=== PATIENT | male | born 1955 | race Caucasian/White ===

== ENCOUNTER 2021-11-05 09:16 | Emergency (ER) | payer MEDICARE, BC ==
[2021-11-05 09:54] VITALS: BP 125/85; PULSE 102
--- NOTE | 2021-11-05 10:40 | EDM.PDOC ---
ED HPI GENERAL MEDICAL PROBLEM - General Chief Complaint: General Stated Complaint: INFECTION IN BUTT Time Seen by Provider: 11/05/21 10:17 Source of Information: Reports: Patient, RN Notes Reviewed History Limitations: Reports: No Limitations - History of Present Illness INITIAL COMMENTS - FREE TEXT/NARRATIVE: 66-year-old gentleman presents the emergency department today with a painful red area near his rectum states is developed over the last 5days he is not had any fevers at home he is never had anything like this before. Buttock Pain Score (Numeric/FACES): 10 - Related Data Allergies Allergy/AdvReac Type Severity Reaction Status Date / Time No Known Allergies Allergy Verified 11/05/21 09:54 Home Meds: Home Meds NK [No Known Home Meds] 08/20/13 [History] Past Medical History - Past Health History Medical/Surgical History: Denies Medical/Surgical History Social & Family History - Tobacco Use Tobacco Use Status *Q: Heavy Tobacco User Years of Tobacco use: 50 Packs/Tins Daily: 2 - Recreational Drug Use Recreational Drug Use: No ED ROS GENERAL - Review of Systems Review Of Systems: See Below Constitutional: Reports: No Symptoms Respiratory: Reports: No Symptoms Cardiovascular: Reports: No Symptoms GI/Abdominal: Reports: No Symptoms Skin: Reports: Wound ED EXAM, GENERAL - Physical Exam Exam: See Below Free Text/Narrative:: Examination of the rectum sphincter appears normal with good tone however there is an area firm indurated warm tender to the touch superior aspects about in the 2 o'clock position, there is some erythema within the gluteal cleft as well as on the buttocks area one third of the way on the left gluteal cheek Exam Limited By: No Limitations General Appearance: Alert, WD/WN, No Apparent Distress Course - Vital Signs Last Recorded V/S: Last Vital Signs Temp 97.6 F 11/05/21 09:52 Pulse 102 H 11/05/21 09:52 Resp 20 11/05/21 09:52 BP 125/85 11/05/21 09:52 Pulse Ox 94 L 11/05/21 09:52 Departure - Departure Time of Disposition: 10:39 Disposition: Home, Self-Care 01 Condition: Fair Clinical Impression: Pilonidal cyst - Discharge Information Instructions: Pilonidal Cyst, Pilonidal Cyst Drainage, Pilonidal Cyst Drainage, Care After Referrals: PCP,None [Primary Care Provider] - Additional Instructions: Use ibuprofen for baseline pain control use hydrocodone for breakthrough pain, take full course of antibiotics, please report to the emergency department entrance tomorrow at 1:00 for your Covid testing the outpatient surgery center will call you for a surgery time on Wednesday to have this excised, Sepsis Event Note (ED) - Evaluation Sepsis Screening Result: No Definite Risk - Focused Exam Vital Signs: Vital Signs Temp Pulse Resp BP Pulse Ox 11/05/21 09:52 97.6 F 102 H 20 125/85 94 L - Assessment/Plan Plan: Assessment Acuity = acute Site and laterality = pilonidal cyst Etiology = unknown Manifestations = painful rectal area Location of injury = Home Lab values = none Plan Called discussed case Dr. Steward surgeon on-call at 1030 he kindly agreed to see the patient in an hospital with plan for surgical excision after treatment with antibiotics. He is placed on Augmentin 875 p.o. twice daily [id number], hyd rocodone 5/325 1 tab p.o. 3 times daily as needed total #10 provided for pain control Covid testing will be done prior to surgery This note was dictated using [employer] voice recognition software please call with any questions on syntax or grammar.
== END 2021-11-05 11:10 | disposition home or self-care (01) ==
LOC: JP.ED 09:16
DX: L05.91 Pilonidal cyst without abscess (principal); Z72.0 Tobacco use
CPT/HCPCS: 99282

== ENCOUNTER 2021-11-07 10:01 | Inpatient (IN) | payer MEDICARE, BC ==
[2021-11-07] MEDS ORDERED: fentaNYL 100 MCG/2 ML SDV IVPUSH ONE (11:15)
--- NOTE | 2021-11-07 11:18 | EDM.PDOC ---
ED HPI GENERAL MEDICAL PROBLEM - General Chief Complaint: Wound Recheck Stated Complaint: INFECTION Time Seen by Provider: 11/07/21 11:06 Source of Information: Reports: Patient, Old Records, RN Notes Reviewed History Limitations: Reports: No Limitations - History of Present Illness INITIAL COMMENTS - FREE TEXT/NARRATIVE: 66-year-old gentleman presents emergency department today with complaint of abscess on his rectum area the opportunity to evaluate him on Wednesday felt this was consistent with pilonidal cyst/perirectal abscess. He is on antibiotics of Augmentin has been using pain control with hydrocodone. He states he has not been able to do the sitz bath because he does not have a bath at home. States the hydrocodone is not helping with the pain. The abscess is open and draining no fevers Buttock Pain Score (Numeric/FACES): 10 - Related Data Allergies Allergy/AdvReac Type Severity Reaction Status Date / Time No Known Allergies Allergy Verified 11/07/21 10:57 Home Meds: Home Meds Acetaminophen/HYDROcodone [HYDROcodone-Acetaminophen 5-325 MG *] 1 tab PO ASDIRECTED 11/07/21 [History] Amoxicillin/Clavulanate K [Augmentin 875-125 MG] 1 tab PO DAILY 11/07/21 [History] Past Medical History - Past Health History Medical/Surgical History: Denies Medical/Surgical History Genitourinary History: Reports: Chronic Renal Insuffiency Other Genitourinary History: stage 4 kidney disease Musculoskeletal History: Reports: Fracture - Past Surgical History GI Surgical History: Reports: Hernia, Inguinal Social & Family History - Tobacco Use Tobacco Use Status *Q: Heavy Tobacco User Years of Tobacco use: 55 Packs/Tins Daily: 1.5 - Caffeine Use Caffeine Use: Reports: Coffee - Alcohol Use Days Per Week of Alcohol Use: 3 Number of Drinks Per Day: 8 Total Drinks Per Week: 24 - Recreational Drug Use Recreational Drug Use: No ED ROS GENERAL - Review of Systems Review Of Systems: See Below Constitutional: Denies: Fever Respiratory: Reports: No Symptoms Cardiovascular: Reports: No Symptoms GI/Abdominal: Reports: No Symptoms Skin: Reports: Wound, Lesions ED EXAM, GENERAL - Physical Exam Exam: See Below Free Text/Narrative:: Examination of the buttock area there is a area that is open and draining about the size of a $0.50 piece it is tender firm red predominantly all on the right gluteal cheek near the rectum Exam Limited By: No Limitations General Appearance: Alert, WD/WN, No Apparent Distress Respiratory/Chest: No Respiratory Distress Course - Vital Signs Last Recorded V/S: Last Vital Signs Temp 97.7 F 11/07/21 10:55 Pulse 73 11/07/21 10:55 Resp 16 11/07/21 10:55 BP 112/55 L 11/07/21 10:55 Pulse Ox 100 11/07/21 10:55 - Orders/Labs/Meds Labs: Laboratory Tests 11/07/21 11/07/21 11/07/21 Range/Units 11:15 11:23 11:23 WBC 20.9 H (4.5-11.0) K/uL RBC 5.01 (4.30-5.90) M/uL Hgb 14.4 (12.0-15.0) g/dL Hct 43.7 (40.0-54.0) % MCV 87 (80-98) fL MCH 29 (27-31) pg MCHC 33 (32-36) % Plt Count 311 (150-400) K/uL Neut % (Auto) 83.7 H (36-66) % Lymph % (Auto) 6.1 L (24-44) % [place] % (Auto) 8.9 H (2-6) % Eos % (Auto) 1.0 L (2-4) % Baso % (Auto) 0.3 (0-1) % Sodium 141 (140-148) mmol/L Potassium 4.2 (3.6-5.2) mmol/L Chloride 107 (100-108) mmol/L Carbon Dioxide 21 (21-32) mmol/L Anion Gap 13.3 (5.0-14.0) mmol/L BUN 33 H (7-18) mg/dL Creatinine 2.2 H (0.8-1.3) mg/dL Est Cr Clr Drug Dosing 32.58 mL/min Estimated GFR (MDRD) 30 L (>60) Glucose 117 H (74-106) mg/dL Lactic Acid (0.4-2.0) mmol/L Calcium 9.4 (8.5-10.1) mg/dL Total Bilirubin 0.3 (0.2-1.0) mg/dL AST 29 (15-37) U/L ALT 35 (12-78) U/L Alkaline Phosphatase 105 (46-116) U/L Total Protein 7.1 (6.4-8.2) g/dL Albumin 2.5 L (3.4-5.0) g/dL Globulin 4.6 H (2.3-3.5) g/dL Albumin/Globulin Ratio 0.5 L (1.2-2.2) SARS CoV-2 RNA Rapid DANNY Negative 11/07/21 Range/Units 11:23 WBC (4.5-11.0) K/uL RBC (4.30-5.90) M/uL Hgb (12.0-15.0) g/dL Hct (40.0-54.0) % MCV (80-98) fL MCH (27-31) pg MCHC (32-36) % Plt Count (150-400) K/uL Neut % (Auto) (36-66) % Lymph % (Auto) (24-44) % [place] % (Auto) (2-6) % Eos % (Auto) (2-4) % Baso % (Auto) (0-1) % Sodium (140-148) mmol/L Potassium (3.6-5.2) mmol/L Chloride (100-108) mmol/L Carbon Dioxide (21-32) mmol/L Anion Gap (5.0-14.0) mmol/L BUN (7-18) mg/dL Creatinine (0.8-1.3) mg/dL Est Cr Clr Drug Dosing mL/min Estimated GFR (MDRD) (>60) Glucose (74-106) mg/dL Lactic Acid 1.2 (0.4-2.0) mmol/L Calcium (8.5-10.1) mg/dL Total Bilirubin (0.2-1.0) mg/dL AST (15-37) U/L ALT (12-78) U/L Alkaline Phosphatase (46-116) U/L Total Protein (6.4-8.2) g/dL Albumin (3.4-5.0) g/dL Globulin (2.3-3.5) g/dL Albumin/Globulin Ratio (1.2-2.2) SARS CoV-2 RNA Rapid DANNY Meds: Medications Discontinued Medications Generic Name Dose Route Start Last Admin Trade Name Freq PRN Reason Stop Dose Admin Fentanyl 50 mcg 11/07/21 11:15 11/07/21 11:40 Fentanyl 100 Mcg/2 Ml Sdv IVPUSH 11/07/21 11:16 50 mcg ONETIME ONE Administration - Re-Assessments/Exams Free Text/Narrative Re-Assessment/Exam: 11/07/21 11:18 Discussed the case with Dr. Steward he had plan to take him to the operating room for excision on Wednesday however he is in the operating room now I did discuss the case with him he will come and evaluate him in the emergency department after he finishes his case Departure - Departure Time of Disposition: 12:17 Disposition: Admitted As Inpatient 65 Condition: Fair Clinical Impression: Perirectal abscess - Discharge Information Referrals: PCP,None [Primary Care Provider] - Forms: ED Department Discharge Sepsis Event Note (ED) - Evaluation Sepsis Screening Result: No Definite Risk - Focused Exam Vital Signs: Vital Signs Temp Pulse Resp BP Pulse Ox 11/07/21 10:55 97.7 F 73 16 112/55 L 100 11/07/21 10:46 97.7 F 73 16 112/55 L 100 - Assessment/Plan Plan: Assessment Acuity = acute Site and laterality = perirectal abscess with local cellulitis Etiology = bacterial Manifestations = none Location of injury = Home Lab values = WBC elevated 20.9 consistent with leukocytosis, creatinine elevated 2.2 consistent with chronic renal failure stage G3 B lactic acid normal 1.[address] Steward here to admit the patient surgical intervention today This note was dictated using [employer] voice recognition software please call with any questions on syntax or grammar.
[2021-11-07] MEDS ORDERED: Lactated Ringers 500 ML IV ONE (12:30)
[2021-11-07] MEDS ORDERED: Dextrose 5%-Lactated Ringers 1,000 ML IV SCH (13:00)
[2021-11-07] MEDS ORDERED: Ondansetron 4 MG/2 ML SDV IVPUSH PRN ×2 (13:29→15:18)
[2021-11-07] MEDS ORDERED: Naloxone 0.4 MG/ML SDV IVPUSH PRN (13:29)
[2021-11-07] MEDS ORDERED: diphenhydrAMINE 50 MG/ML SDV IVPUSH PRN (13:29)
[2021-11-07] MEDS ORDERED: diphenhydrAMINE 25 MG Cap PO PRN (13:29)
[2021-11-07] MEDS: HYDROmorphone/Normal Saline 6 MG/30 ML PCA Vial IV PRN (13:47)
[2021-11-07] MEDS ORDERED: Naloxone 0.4 MG/ML SDV IV PRN (14:00)
[2021-11-07] MEDS: Meropenem 500 MG in Sodium Chloride 0.9% 50 ML IV ONE ×2 (14:00→15:50)
[2021-11-07] MEDS ORDERED: Linezolid 600 MG in Premix Bag 1 BAG IV ONE (15:00)
[2021-11-07] MEDS ORDERED: Meropenem 500 MG in Sodium Chloride 0.9% 50 ML IV SCH (16:00)
[2021-11-07] MEDS: Acetaminophen 500 MG Tab PO SCH ×2 (16:31→21:49)
[2021-11-07] MEDS: Meropenem 500 MG in Sodium Chloride 0.9% 50 ML IV SCH (19:32)
[2021-11-08] MEDS: Meropenem 500 MG in Sodium Chloride 0.9% 50 ML IV SCH ×4 (02:17→20:01)
[2021-11-08] MEDS: Linezolid 600 MG in Premix Bag 1 BAG IV SCH ×2 (04:09→15:35)
[2021-11-08] MEDS: Acetaminophen 500 MG Tab PO SCH ×4 (04:10→20:59)
[2021-11-08] MEDS: Lactated Ringers 1,000 ML IV SCH ×3 (06:11→23:22)
[2021-11-08] MEDS ORDERED: Meropenem 500 MG SDV ONE (06:46)
[2021-11-08] MEDS: Meropenem 500 MG in Sodium Chloride 0.9% 50 ML IV ONE (08:50)
[2021-11-08] MEDS ORDERED: Nicotine 21 MG/24 Hr Patch TRDERM SCH (10:15)
[2021-11-08] MEDS ORDERED: Iopamidol 612 MG/ML 50 ML SDV PO ONE (10:45)
[2021-11-08] MEDS: Magnesium Sulfate/Water 2 GM in Premix Bag 1 BAG IV SCH ×3 (11:48→20:59)
[2021-11-08] MEDS: Nicotine 21 MG/24 Hr Patch TRDERM SCH (11:50)
[2021-11-08] MEDS: HYDROmorphone/Normal Saline 6 MG/30 ML PCA Vial IV PRN (12:03)
--- NOTE | 2021-11-08 15:02 | CRLCT ---
For Patients: As a result of the Century Cures Act, medical imaging exams and procedure reports are released immediately into your electronic medical record. You may view this report before your referring provider. If you have questions, please contact your health care provider. INDICATION: Post drainage of rectal abscess. Query abdominal/pelvic source. TECHNIQUE: CT abdomen and pelvis without contrast. COMPARISON: None available. FINDINGS: Lower chest: Bibasilar subsegmental atelectasis/fibrotic changes. No focal consolidation. Evaluation of solid organs is limited secondary to lack of IV contrast administration. Liver: Too small to characterize hypodense hepatic lesions, likely benign in the absence of a known malignancy. Gallbladder and bile ducts: Unremarkable. Pancreas: Unremarkable. Spleen: Unremarkable. Adrenal glands: Unremarkable. Kidneys: No calculi identified in the bilateral renal collecting systems. No hydronephrosis or hydroureter bilaterally. Retroperitoneum: No lymphadenopathy. Bowel and mesentery: The bowel is nonobstructed. Normal appendix. No significant ascites, no pneumoperitoneum. Mild circumferential wall thickening of the stomach, may reflect gastritis. There is suggestion of a small fistulous tract extending from the 7 o`clock region of the anus toward the right medial gluteal soft tissue defect. Evaluation is limited secondary to adjacent inflammatory changes. Bladder: Unremarkable for degree of distension. Reproductive organs: No significant prostatomegaly. TURP defect is noted. Pelvic lymph nodes: No lymphadenopathy. Vessels: Atherosclerotic calcifications. Abdominal wall: Soft tissue defect in the right posterior medial gluteal soft tissues, consistent with history of recent abscess drainage and packing. Bones: Multilevel degenerative changes of the spine. No suspicious/aggressive focal osseous lesion. IMPRESSION: 1. Soft tissue defect in the right posterior medial gluteal soft tissues, consistent with history of recent abscess drainage and packing. 2. Suggestion of a small fistulous tract extending from the 7 o`clock region of the anus towards the aforementioned gluteal soft tissue defect, worrisome for a perirectal/perianal fistula. This could be further characterized/delineated with MRI pelvis (soft tissue protocol). 3. Mild circumferential wall thickening of the stomach is nonspecific, and may reflect gastritis. Please note that all CT scans at this facility use dose modulation, iterative reconstruction, and/or weight-based dosing when appropriate to reduce radiation dose to as low as reasonably achievable. Dictated by Kathryn Martins MD @ 11/08/2021 3:00:47 PM (Electronically Signed)
[2021-11-08] MEDS: Calcium Carbonate 500 MG Tab.Chew PO PRN ×2 (21:25→23:25)
[2021-11-09] MEDS: Meropenem 500 MG in Sodium Chloride 0.9% 50 ML IV SCH ×4 (02:36→19:57)
[2021-11-09] MEDS: Linezolid 600 MG in Premix Bag 1 BAG IV SCH ×2 (03:34→15:04)
[2021-11-09] MEDS: Magnesium Sulfate/Water 2 GM in Premix Bag 1 BAG IV SCH ×2 (04:44→10:36)
[2021-11-09] MEDS: Acetaminophen 500 MG Tab PO SCH ×4 (04:49→21:10)
[2021-11-09] MEDS ORDERED: Pantoprazole 40 MG Vial IVPUSH ONE (09:30)
[2021-11-09] MEDS: Nicotine 21 MG/24 Hr Patch TRDERM SCH (09:51)
[2021-11-09] MEDS: Lactobacillus Rhamnosus GG (Probiotic) Cap PO SCH ×2 (10:38→20:00)
[2021-11-09] MEDS: Magnesium Oxide 400 MG Tab PO SCH ×2 (10:39→20:00)
[2021-11-09] MEDS ORDERED: Pantoprazole 40 MG Vial IV SCH (11:00)
[2021-11-09] MEDS: Lactated Ringers 1,000 ML IV SCH (19:57)
[2021-11-10] MEDS: Meropenem 500 MG in Sodium Chloride 0.9% 50 ML IV SCH ×2 (01:14→11:00)
[2021-11-10] MEDS: Acetaminophen 500 MG Tab PO SCH ×4 (03:21→21:33)
[2021-11-10] MEDS: Linezolid 600 MG in Premix Bag 1 BAG IV SCH (03:21)
[2021-11-10] MEDS: Pantoprazole 40 MG Vial IV SCH (06:06)
--- NOTE | 2021-11-10 08:03 | PN ---
DATE OF SERVICE: 11/10/2021 SUBJECTIVE: Oscar is n.p.o. He will be going down to OR for a dressing change. He had a perirectal abscess incision and drainage on 11/07/2021 and he has been having daily dressing changes. Vital signs have been stable. He has been afebrile with the exception blood pressure has been increasing. LABORATORY DATA: Labs this morning, white count 12.3. His creatinine is 1.6. BNP is up at 4801. REVIEW OF SYSTEMS: Remainder of review of systems negative for any pertinent positives and negatives. OBJECTIVE: GENERAL: Oscar Iqbal is a 66-year-old male. Alert and orientated. VITAL SIGNS: TPR 97.8, 84, 16, blood pressure 161/78. HEENT: Negative. HEART: Regular rate and rhythm. LUNGS: Clear. RECTAL: Perirectal abscess area to be checked in OR by Coleman Steward MD. ASSESSMENT: Perirectal abscess incision and drainage on 11/07/2021. 11/08/2021, dressing change under anesthesia. 11/09/2021, dressing change under anesthesia, flexible sigmoidoscopy for necrotizing fasciitis. Surgeon: Coleman Steward MD. PLAN: 1. Orders to be written postoperatively. He will be switched to Unasyn antibiotic and Lasix will be given for an elevated BNP and hypertension. Labs will be rechecked in the morning. Encouraged ambulation and use of incentive spirometer. 2. We will evaluate p.r.n. or in a.m. Casandra Sorensen PA-C /[id number]
[2021-11-10] MEDS: Lactated Ringers 1,000 ML IV SCH ×2 (08:33→21:26)
[2021-11-10] MEDS ORDERED: Potassium Chloride 20 MEQ Tab.ER PO ONE (09:00)
[2021-11-10] MEDS: Lactobacillus Rhamnosus GG (Probiotic) Cap PO SCH ×2 (10:21→20:16)
[2021-11-10] MEDS: Ampicillin/Sulbactam Na 3 GM in Sodium Chloride 0.9% 100 ML IV SCH ×3 (10:21→21:25)
[2021-11-10] MEDS: Furosemide 20 MG/2 ML VIAL IVPUSH SCH ×2 (10:21→15:15)
[2021-11-10] MEDS: Magnesium Oxide 400 MG Tab PO SCH ×2 (10:25→20:16)
[2021-11-10] MEDS: Nicotine 21 MG/24 Hr Patch TRDERM SCH (10:25)
--- NOTE | 2021-11-10 11:21 | PN ---
DATE OF SERVICE: 11/09/2021 The patient has been afebrile with stable vital signs. Pain control appears to be fairly good. Cultures thus far are not growing anything out. The lab did report yesterday they had something on the plates, but reports at this point do not show any growth. We will continue with present broad-spectrum antibiotics. Hopefully, cultures obtained yesterday or the ones day before eventually did grow something out antibiotics. CT scan showed no other pelvic or intraabdominal pathology. There was suggestion of a fistulous tract beginning around 7 o'clock per the radiologist from the anal area that would be consistent with the patient having a right-sided posterior presenting abscess and necrotizing fasciitis. Plan today will be to do a dressing change once again by anesthesia and debridement as necessary and flexible sigmoidoscopy to just assess to make sure there is no any additional rectal pathology. I will try to be fairly so we do not widely open up the fistula, which would create more of those problem with stool entering the abscess cavity which now being packed. Otherwise, his labs are better, creatinine is down at 1.9 and white count is also decreased now to 12.8 from 16 yesterday and 28.9 on Wednesday. Coleman Steward MD /[id number]
--- NOTE | 2021-11-10 11:42 | PN ---
DATE OF SERVICE: 11/08/2021 The patient is status post drainage of a supralevator abscess along with necrotizing fasciitis extending into the right gluteal and perineal areas. He underwent a secondary exploration today with some additional debridement. The rectum which was toppled entirely on its right side yesterday was already beginning to collapse and the soft tissues collapsing around it and we will try to continue to encourage the wound to heal from the inside-out so to speak. We will obtain a CT scan of the abdomen and pelvis today to rule out any pelvic or abdominal source for the abscess as this is essentially a pelvic abscess above the levator muscle. Otherwise, his labs look a little bit better. White count is down somewhat and creatinine is down from 2.2 to 1.0. Urine output still today. Recheck some labs tomorrow. Tomorrow, the plan will be to obtain a flexible sigmoidoscopy to look for any specific pathology in the anorectal area and then look at the wound once again to reassess the area along with dressing change. Thus far, nothing is seen on Gram stains, but the lab does report there is growth on the plates. We will probably have some preliminary diagnosis tomorrow, and at that point, we will be able to over the next day or 2 fine tune the antibiotic coverage. Coleman Steward MD /[id number]
[2021-11-10] MEDS: HYDROmorphone/Normal Saline 6 MG/30 ML PCA Vial IV PRN (21:27)
[2021-11-11] MEDS: Ampicillin/Sulbactam Na 3 GM in Sodium Chloride 0.9% 100 ML IV SCH ×5 (04:01→21:05)
[2021-11-11] MEDS: Acetaminophen 500 MG Tab PO SCH ×4 (04:01→21:07)
[2021-11-11] MEDS ORDERED: Propofol 200 MG/20 ML SDV ONE (06:05)
[2021-11-11] MEDS ORDERED: Ondansetron 4 MG/2 ML SDV ONE (06:05)
[2021-11-11] MEDS ORDERED: fentaNYL 100 MCG/2 ML SDV ONE (06:05)
[2021-11-11] MEDS ORDERED: Midazolam 1 MG/ML 2 ML SDV ONE (07:10)
--- NOTE | 2021-11-11 07:24 | PN ---
DATE OF SERVICE: 11/11/2021 SUBJECTIVE: Oscar is n.p.o. He will be going down for a dressing change with IV sedation. Vital signs have been stable. Oral intake 1160. Urine output 4500. He did have Lasix yesterday and has had 1 bowel movement. REVIEW OF SYSTEMS: Remainder of review of systems negative for any pertinent positives and negatives. OBJECTIVE: VITAL SIGNS: Oscar is a 66-year-old male. TPR is 98.4, 68, 18, blood pressure 138/71. HEENT: Negative. NECK: Supple. HEART: Regular rate and rhythm. LUNGS: Clear. SKIN: Perineal area exam done by Coleman Steward MD, under IV sedation today with dressing change. ASSESSMENT: 1. Perirectal abscess incision and drainage, 11/07/2021. 2. Dressing change under anesthesia, 11/08/2021. 3. Dressing change under anesthesia and flexible sigmoidoscopy on 11/09/2021. 4. Dressing change under anesthesia on 11/10/2021. 5. Procedures by surgeon, Coleman Steward MD. PLAN: Orders to be written postoperatively. We will evaluate p.r.n. or in a.m. Casandra Sorensen PA-C /[id number]
[2021-11-11] MEDS ORDERED: Ampicillin/Sulbactam Na 3 GM Vial IV ONE (07:30)
[2021-11-11] MEDS ORDERED: Furosemide 20 MG/2 ML VIAL IVPUSH ONE (09:00)
[2021-11-11] MEDS: Pantoprazole 40 MG Vial IV SCH (09:13)
[2021-11-11] MEDS: Lactobacillus Rhamnosus GG (Probiotic) Cap PO SCH ×2 (09:20→21:04)
[2021-11-11] MEDS: Nicotine 21 MG/24 Hr Patch TRDERM SCH (09:20)
[2021-11-11] MEDS: Magnesium Oxide 400 MG Tab PO SCH ×2 (09:21→21:05)
[2021-11-11] MEDS: oxyCODONE 5 MG Tab PO PRN ×2 (09:27→15:33)
[2021-11-11] MEDS: Lactated Ringers 1,000 ML IV SCH (09:32)
[2021-11-12] MEDS: oxyCODONE 5 MG Tab PO PRN ×2 (01:14→05:13)
[2021-11-12] MEDS: Ampicillin/Sulbactam Na 3 GM in Sodium Chloride 0.9% 100 ML IV SCH (04:23)
[2021-11-12] MEDS: Acetaminophen 500 MG Tab PO SCH (04:24)
[2021-11-12 07:28] VITALS: BP 169/77; PULSE 58
[2021-11-12] MEDS ORDERED: Pantoprazole 40 MG Tab.CR PO SCH (07:30)
[2021-11-12] MEDS: Lactobacillus Rhamnosus GG (Probiotic) Cap PO SCH (08:31)
[2021-11-12] MEDS: Magnesium Oxide 400 MG Tab PO SCH (08:31)
[2021-11-12] MEDS: Nicotine 21 MG/24 Hr Patch TRDERM SCH (08:32)
--- NOTE | 2021-11-12 10:09 | DISCH ---
ADMISSION DIAGNOSES: Supralevator abscess along with necrotizing fasciitis extending into the right gluteal and perineal area. DISCHARGE DIAGNOSES: 1. Incision and drainage of supralevator abscess with necrotizing fasciitis. Date: 11/07/2021. Surgeon: Coleman Steward MD. 2. Dressing change under IV sedation, 11/08/2021. 3. Dressing change and open incision under anesthesia and flexible sigmoidoscopy, 11/09/2021. 4. Dressing change under anesthesia, 11/10/2021. 5. Dressing change under anesthesia on 11/11/2021. Surgeon: Coleman Steward MD. HISTORY: Oscar Iqbal is a 66-year-old male who presented to the emergency department at [facility] on 11/07/2021 with a supralevator abscess along with necrotizing fasciitis. He was taken to surgery on 11/07/2021. After preoperative evaluation and discussion of possible risks and possible complications he wished to proceed with surgical procedure. He tolerated the procedure well. A CT scan was done to rule out any pelvic or abdominal source for the abscess. The above procedures were done, and with daily dressing changes and antibiotic therapy he progressed without any complications. Labs were watched closely. His CBC was 20.9 on admission and discharge 10.9. Creatinine was watched closely with an admission creatinine of 2.2 and discharge 1.6. GFR was 30, and on discharge 43. His BNP increased from 1058 to 3716 on 11/09, and on 11/10/2021, it was 4801. On the day of discharge, it was 2032. Oscar was able to be discharged on 11/12/2021 with no complications. His dressing was changed at bedside. His girlfriend was instructed how to change this dressing. He tolerated the procedure well. He was able to be discharged to home without any complications. The wound grew out Alpha Viridans group streptococci and beta strep, not group A or B, and alpha strep not pneumococcus. PHYSICAL EXAMINATION: GENERAL: Oscar Iqbal is a 66-year-old male. VITAL SIGNS: Height is 5 feet 9 inches, weight is 194 pounds. TPR is 97.8, 58, 18. Blood pressure 169/77. HEENT: Negative. NECK: Supple. HEART: Regular rate and rhythm. LUNGS: Clear. ABDOMEN: Negative. SKIN: Perineal area right buttock has a deep open circular area, one 4 x 4 was packed in that area, covered with an ABD, secured with tape. EXTREMITIES: Without peripheral edema. DISPOSITION: Discharged to home. CONDITION: Stable and improving. HOME MEDICATIONS: 1. Augmentin 875/125 mg 1 tablet p.o. b.i.d. for 7 days, #14. 2. Oxycodone 5 mg q.6 hours p.r.n. pain, #12. He is to resume: 1. Tylenol Extra Strength 1000 mg p.o. q.6 hours. 2. Colace 100 mg p.o. b.i.d. as a stool softener. FOLLOWUP: followup appointment with Casandra Sorensen PA-C, at [facility], 11/17/2021 at 9 a.m. DIET: Usual diet as tolerated. Drink 8 to 10 glasses of water a day. ACTIVITY: As tolerated. No lifting greater than 10 pounds until open area is healed. Driving: Do not drive while on narcotic pain medication. DISCHARGE INSTRUCTIONS: Shower/bathing: May shower. Keep operative site clean and dry. Wound incision care; remove packing, shower, then repack with gauze and cover with ABD pad, securing in place with tape. Change dressing twice a day and as needed. Notify provider if any fever or increased pain. OTHER SPECIAL INSTRUCTION: Use incentive spirometer 10 times every hour while awake. /[id number]
--- NOTE | 2021-11-12 12:09 | OR ---
DATE OF PROCEDURE: 11/10/2021 SURGEON: Coleman Steward MD PREOPERATIVE DIAGNOSIS: Limited persistent necrotizing fasciitis, right gluteal and perineal area. POSTOPERATIVE DIAGNOSIS: Limited persistent necrotizing fasciitis, right gluteal and perineal area. OPERATIVE PROCEDURE: Debridement of area of necrotizing fasciitis involving right gluteal and perineal area (). ANESTHESIA: Local plus IV sedation. INDICATIONS FOR PROCEDURE: The patient was taken to the operating room and placed in a prone position in somewhat shelia-knife. Previous packing was then removed and the wound prepped and draped. Once again, there was a small amount of additional necrotizing tissue located primarily at a point where the abscess cavity migrated up into the gluteal region. This consisted of some necrotic fascia, subcutaneous tissue, and muscle. This was debrided with electrocautery, and once again, the wound was then palpated. There was some additional adherence to the right side of rectum and no evidence of any fecal material within the wound. Wound was irrigated with antibiotic-containing saline solution and packed with iodoform gauze once again and taken to the recovery room in satisfactory condition. I think we will bring the patient back probably for 1 more day of examination and potential debridement. We are getting close to the point where we can probably deal with this wound on the floor. Coleman Steward MD /[id number]
--- NOTE | 2021-11-12 12:18 | OR ---
DATE OF PROCEDURE: 11/07/2021 SURGEON: Coleman Steward MD PREOPERATIVE DIAGNOSIS: Perianal versus pelvic abscess with associated soft tissue necrosis involving right gluteal and perineal areas. POSTOPERATIVE DIAGNOSIS: Right-sided pelvic/supralevator abscess with necrotizing fascitis in adjacent perineal and gluteal areas. PROCEDURES PERFORMED: 1. Drainage of right-sided pelvic/supralevator abscess (42503). 2. Debridement of necrotizing fascitis involving right perineal and gluteal areas (71518). ANESTHESIA: General. INDICATION FOR PROCEDURE: Please see emergency room note. DETAILS OF PROCEDURE: The patient was taken to the operating room. After general endotracheal anesthesia was induced, he was placed in a prone jackknife position, and the gluteal and surrounding areas were prepped and draped. Initially, an incision with general transverse orientation was made over the superior edge of the area of fluctuance. Initial cultures were obtained as additional was evacuated, and additional skin extending over an area of roughly 10 x 8 cm was then excised as this was overly necrotic. Below this was quite a bit in the way of necrotic subcutaneous tissue and some necrosis involving the underlying musculature. The extent of the abscess extended into the supralevator plane with the right side of the rectum being almost entirely palpable within the abscess cavity. This extended down the anterior aspect of the rectum and slightly onto the left side, perhaps 15 degrees of the rectal circumference was at that level. The rectum itself appeared to be fortunately intact with there being no evidence of any fecal contamination within the wound. At this point, additional debridement was carried down such that all of the obviously necrotic material was removed. This did involve some of the gluteal musculature that did not appear to extend into the underlying and inferiorly located sphincter muscles as this abscess was entirely above the levator complex, i.e., was more of a low lying pelvic abscess which could be from either a perianal abscess extending upward into that direction versus an abscess resulting from other intraabdominal or pelvic pathology such as diverticulitis. At this point, the wound was irrigated with meropenem and Zyvox-containing saline solution. The patient was subsequently given some additional Zyvox. The Gram stain failed to show any organisms with Zyvox covering any gram-positive organisms such as strep quite well. The wound was then packed with iodoform gauze. The patient remained hemodynamically stable and was taken to the recovery room in satisfactory condition. There were no evident complications. Coleman Steward MD /[id number]
--- NOTE | 2021-11-12 12:18 | OR ---
DATE OF PROCEDURE: 11/11/2021 SURGEON: Coleman Steward MD PREOPERATIVE DIAGNOSIS: Minimal persistent necrotizing fasciitis of right gluteal and perineal area. POSTOPERATIVE DIAGNOSIS: Minimal persistent necrotizing fasciitis of right gluteal and perineal area. OPERATIVE PROCEDURE: Debridement of necrotizing fasciitis of right gluteal and perineal area (14569). ANESTHESIA: IV sedation. DETAILS OF PROCEDURE: The patient was taken to the operating room, placed in a prone jackknife position, and the previous packing was removed. The gluteal and perineal areas were then prepped and draped. The patient had a small amount of necrotic muscle again in the area where the abscess cavity extended into the perineal and gluteal regions. This was debrided. At that point, we felt we were probably up to the extent that this wound could be managed out of the operating room. The entire right side and the around the left side of the rectum that had previously been open was now adherent to surrounding soft tissues which will make the packing in that area fairly straightforward we will be planning on a small amount of packing placed on at the anterior aspect of the rectum, and then, from there, filling up the gluteal and perineal wound. This will be done at the bedside tomorrow. The patient was taken to the recovery room in satisfactory condition. Coleman Steward MD /[id number]
--- NOTE | 2021-11-12 12:24 | OR ---
DATE OF PROCEDURE: 11/09/2021 SURGEON: Coleman Steward MD PREOPERATIVE DIAGNOSIS: Minor persistent area of necrotizing fasciitis, right gluteal perineal wound. POSTOPERATIVE DIAGNOSES: 1. Minor persistent area of necrotizing fascitis involving the right gluteal and perineal wound. 2. Slight focal reddening in the posterior aspect of the area of the dentate line consistent with a perianal fistula. OPERATIVE PROCEDURES: 1. Flexible sigmoidoscopy. 2. Debridement of necrotizing fascitis involving the right gluteal and perianal areas ([id number]). ANESTHESIA: Local plus IV sedation. INDICATIONS FOR PROCEDURE: The patient once again was taken to the operating room for inspection of the wound. After the packing was removed, the wound was prepped and draped and he was found once again to have some minor extension of necrosis. This involved primarily the point where the abscess cavity had penetrated up into the gluteal area. That area was then debrided of some necrotic subcutaneous tissue of the musculature, and at that point, no further necrosis was evident on today's exam. The area along the rectum was once again palpated. The skin appeared to be intact and there was no fecal contamination. The posterior half of the rectum on the left side and the small amount on the left side of the rectum was now becoming adherent to the surrounding soft tissues, which would be a positive development. Wound was then packed with iodoform gauze soaked with antibiotics within it, and the patient was taken to the recovery room in satisfactory condition. Coleman Steward MD /[id number]
--- NOTE | 2021-11-12 12:39 | PN ---
DATE OF SERVICE: 11/07/2021 This 66-year-old male who was seen 2 days ago in the emergency room and thought at that time to have an infected pilonidal cyst, was placed on antibiotics. He presents now with worsening pain. Examination now would be consistent with an abscess involving likely right perianal area with development of soft tissue necrosis involving the right gluteal area and presumably extending downward toward the perianal area. This also appeared to be a low- lying pelvic abscess from intraabdominal or pelvic pathology such as diverticulitis. At any rate, the patient at this point will undergo immediate surgical intervention with debridement and drainage of this area as possible, possible need for additional ongoing debridement were reviewed. Potential risks of procedure including bleeding. Infection, possible need for extensive soft tissue excision requiring prolonged period of wound care, along with remote possibility of cardiopulmonary, septic, or hemorrhagic complications leading to were discussed, and the patient wishes to proceed. We are going to start with meropenem and Azactam and then base any additional antibiotics or changes in the antibiotic regimen based on the intraoperative Gram stains, undergoing surgical intervention shortly. Coleman Steward MD /[id number]
--- NOTE | 2021-11-12 12:42 | OR ---
DATE OF PROCEDURE: 11/08/2021 SURGEON: Coleman Steward MD PREOPERATIVE DIAGNOSIS: Limited persistent necrotizing fasciitis involving area of supralevator pelvic abscess extending into the right gluteal and perineal areas. POSTOPERATIVE DIAGNOSIS: Limited persistent necrotizing fascitis involving area of supralevator pelvic abscess extending into the right gluteal and perineal areas. OPERATIVE PROCEDURE: Debridement of persistent necrotizing fasciitis involving right supralevator pelvic abscess extending into the right gluteal area ([id number]). ANESTHESIA: Local plus IV sedation. INDICATIONS FOR PROCEDURE: The patient underwent drainage of right-sided pelvic supralevator abscess including areas of necrotizing fasciitis. He is to undergo serial repeat examinations until all of the underlying necrotic tissue has been excised and there is no further extension. Potential risks of the procedure including further bleeding and infection were reviewed and the patient wishes to proceed. DETAILS OF PROCEDURE: The patient was taken to the operating room, placed in prone position with the knees somewhat in shelia-knife position as well. The previous packing was then removed and there was fecalith material within the wound. The wound was then inspected. Some additional necrotic material primarily in the area of the gluteal musculature and adjacent subcutaneous tissue was then debrided. Once again, the area along the rectum was examined digitally and this appeared to be intact. There was already being seemed to be some adherence to the soft tissues to the posterior aspect of the right side of the rectum. After debridement, the area was then packed with iodoform gauze soaked with meropenem and antibiotic-containing saline solution and the patient was taken to the recovery room in satisfactory condition. Plan will be to proceed with repeat examination daily until there is no further additional necrotic material identified. Coleman Steward MD /[id number]
--- NOTE | 2021-11-12 12:54 | OR ---
DATE OF PROCEDURE: 11/09/2021 SURGEON: Coleman Steward MD ADDENDUM: At the conclusion of the packing, flexible sigmoidoscope was passed up roughly 10 cm. There was a fair bit of stool, but it did cover a moderate amount of the mucosal surfaces. At the 7 o'clock area, from a supine standpoint, there was a slight reddening and a palpable thickening of the tissue consistent with what was seen on yesterday's CT scan suggestive of perianal fistula. Otherwise, the mucosa was entirely normal to the extent that was visualized, and the procedure was then concluded. Coleman Steward MD /[id number]
--- NOTE | 2021-11-12 12:54 | PN ---
DATE OF SERVICE: 11/11/2021 The patient has been afebrile with stable vital signs. Pain is getting less and less, and we will switch her to oral pain medication with the addition of Tylenol today. His creatinine is stable at 1.6. We gave him some additional Lasix, and he did have a large amount of urine output yesterday with 2 doses of Lasix. The wound is quite clean at this point and rectum that is not attached with soft tissue at this point is directly posteriorly at the base of the wound, so I think we will begin doing dressing changes at the bedside tomorrow. I will do dressing change in the morning. If this works out okay, we will show his girlfriend how to do the dressing changes. He may be ready for discharge home tomorrow. At this point, there are no signs of any persistent soft tissue infection. Coleman Steward MD /[id number]
== END 2021-11-12 08:40 | disposition home or self-care (01) | DRG 356 ==
LOC: JP.SDS 10:01 → JP.ED 10:01 → JP.SDS 12:26 → JP.ED 13:22 → EDSTATUS 16:20
PROVIDERS: ADMIT Surgery; ATTEND Surgery
PROC: 0JB90ZZ Excision of Buttock Subcutaneous Tissue and Fascia, Open Approach (ICD-10-PCS; 2021-11-07)
PROC: 0JBB0ZZ Excision of Perineum Subcutaneous Tissue and Fascia, Open Approach (ICD-10-PCS; 2021-11-07)
PROC: 0W9J0ZZ Drainage of Pelvic Cavity, Open Approach (ICD-10-PCS; 2021-11-07)
PROC: 0JB90ZZ Excision of Buttock Subcutaneous Tissue and Fascia, Open Approach (ICD-10-PCS; principal; 2021-11-08)
PROC: 0JBB0ZZ Excision of Perineum Subcutaneous Tissue and Fascia, Open Approach (ICD-10-PCS; 2021-11-08)
PROC: 0JB90ZZ Excision of Buttock Subcutaneous Tissue and Fascia, Open Approach (ICD-10-PCS; 2021-11-09)
PROC: 0JBB0ZZ Excision of Perineum Subcutaneous Tissue and Fascia, Open Approach (ICD-10-PCS; 2021-11-09)
PROC: 0DJD8ZZ Inspection of Lower Intestinal Tract, Via Natural or Artificial Opening Endoscopic (ICD-10-PCS; 2021-11-09)
PROC: 0JB90ZZ Excision of Buttock Subcutaneous Tissue and Fascia, Open Approach (ICD-10-PCS; 2021-11-10)
PROC: 0JBB0ZZ Excision of Perineum Subcutaneous Tissue and Fascia, Open Approach (ICD-10-PCS; 2021-11-10)
PROC: 0JB90ZZ Excision of Buttock Subcutaneous Tissue and Fascia, Open Approach (ICD-10-PCS; 2021-11-11)
PROC: 0JBB0ZZ Excision of Perineum Subcutaneous Tissue and Fascia, Open Approach (ICD-10-PCS; 2021-11-11)
DX: K61.5 Supralevator abscess (principal); M72.6 Necrotizing fasciitis; L02.31 Cutaneous abscess of buttock; N18.4 Chronic kidney disease, stage 4 (severe); L02.215 Cutaneous abscess of perineum; F17.210 Nicotine dependence, cigarettes, uncomplicated; Z20.822 Contact with and (suspected) exposure to COVID-19
CPT/HCPCS: 36415; 74176; 80048; 80053; 83605; 83735; 83880; 84100; 85025; 87070; 87075; 87077; 87205; 88304; 88312; A9270-GY; C9113; J0295; J1170; J1940; J2020; J2185; J2250; J2405; J2704; J3010; J3475; J3490; J7120; J7121; Q9967; U0002

== ENCOUNTER 2022-09-03 05:42 | Day surgery (SDC) | payer MEDICARE, BC ==
[2022-09-03] MEDS ORDERED: Acetaminophen 500 MG Tab PO ONE (06:00)
[2022-09-03] MEDS ORDERED: Dextrose 5%-Lactated Ringers 1,000 ML IV SCH (06:15)
[2022-09-03 06:30] LABS: ESTIMATED GFR 43 mL/min (>60)
[2022-09-03] MEDS ORDERED: Bupivacaine 0.5%/EPINEPHrine 1:200,000 50 ML MDV ONE (06:33)
[2022-09-03] MEDS ORDERED: Lidocaine 1% 50 ML MDV ONE (06:33)
[2022-09-03] MEDS ORDERED: Glycopyrrolate 0.2 MG/ML 5 ML MDV ONE (06:53)
[2022-09-03] MEDS ORDERED: Rocuronium 50 MG/5 ML Vial ONE (06:53)
[2022-09-03] MEDS ORDERED: Propofol 200 MG/20 ML SDV ONE (06:53)
[2022-09-03] MEDS ORDERED: Neostigmine Methylsulfate 1 MG/ML 5 ML Syringe ONE (06:53)
[2022-09-03] MEDS ORDERED: Dexamethasone 4 MG/ML SDV ONE (06:53)
[2022-09-03] MEDS ORDERED: Succinylcholine 200 MG/10 ML MDV ONE (06:53)
[2022-09-03] MEDS ORDERED: Ondansetron 4 MG/2 ML SDV ONE (06:53)
[2022-09-03] MEDS ORDERED: fentaNYL 250 MCG/5 ML SDV ONE (06:54)
[2022-09-03] MEDS ORDERED: Meropenem 500 MG SDV ONE (07:07)
[2022-09-03] MEDS ORDERED: Meropenem 500 MG in Sodium Chloride 0.9% 50 ML IV ONE (07:15)
[2022-09-03] MEDS ORDERED: Hydrogen Peroxide 3% Top Soln 240 ML Bottle ONE (07:53)
[2022-09-03] MEDS ORDERED: Ketamine 20 MG in Sodium Chloride 0.9% 19.8 ML IV SCH (08:00)
[2022-09-03] MEDS ORDERED: Ketamine 500 MG/5 ML MDV IV SCH (08:00)
[2022-09-03] MEDS ORDERED: fentaNYL 100 MCG/2 ML SDV ONE (08:07)
[2022-09-03] MEDS ORDERED: Ketorolac 30 MG/ML SDV ONE (08:45)
[2022-09-03 10:22] VITALS: BP 135/61; PULSE 57
== END 2022-09-03 10:22 | disposition home or self-care (01) ==
LOC: JP.SDS 05:42
PROVIDERS: ATTEND Surgery
DX: K61.1 Rectal abscess (principal); I12.9 Hypertensive chronic kidney disease with stage 1 through stage 4 chronic kidney disease, or unspecified chronic kidney disease; N18.4 Chronic kidney disease, stage 4 (severe); N17.9 Acute kidney failure, unspecified; F17.210 Nicotine dependence, cigarettes, uncomplicated; E66.3 Overweight; Z68.29 Body mass index [BMI] 29.0-29.9, adult; Z79.899 Other long term (current) drug therapy; Z88.8 Allergy status to other drugs, medicaments and biological substances
CPT/HCPCS: 36415; 46040; 80053; 85027; 88304; A9270; J0330; J1100; J1885; J2185; J2405; J2704; J2710; J3010; J3490; J7121; J2001

== ENCOUNTER 2024-10-02 08:46 | Inpatient (IN) | payer MEDICARE, BC ==
[2024-10-02] MEDS ORDERED: HYDROmorphone 0.5 MG/0.5 ML Syringe IVPUSH PRN ×2 (09:55→13:27)
[2024-10-02] MEDS ORDERED: Naloxone 0.4 MG/ML SDV IVPUSH PRN ×2 (09:55→13:27)
[2024-10-02 10:11] LABS: BASOPHILS ABSOLUTE AUTO 0.07 K/uL (0.00-0.10); BASOPHILS PERCENT AUTO 0.5 % (0.1-1.3); EOSINOPHILS ABSOLUTE AUTO 0.17 K/uL (0.00-0.40); EOSINOPHILS PERCENT AUTO 1.3 % (0.0-5.4); HEMATOCRIT 50.7 % (38.4-49.7); HEMOGLOBIN 16.9 g/dL (12.9-16.9); IMMATURE GRAN ABSOLUTE AUTO 0.04 K/uL (0.00-0.23); IMMATURE GRAN PERCENT AUTO 0.3 % (0.0-0.7); LYMPHOCYTES ABSOLUTE AUTO 1.89 K/uL (0.8-3.3); LYMPHOCYTES PERCENT AUTO 14.4 % (11.4-47.7); MEAN CORPUSCULAR HEMOGLOBIN 30.6 pg (31.6-35.5); MEAN CORPUSCULAR HGB CONC 33.3 g/dL (31.6-35.5); MEAN CORPUSCULAR VOLUME 91.7 fL (81.4-99.0); MONOCYTES ABSOLUTE AUTO 0.92 K/uL (0.20-0.90); NEUTROPHILS ABSOLUTE AUTO 10.08 K/uL (1.0-7.6); NEUTROPHILS PERCENT AUTO 76.5 % (40.0-78.1); PLATELET COUNT,PLT 210 K/uL (130-375); RED BLOOD CELL COUNT 5.53 M/uL (4.14-5.76); WHITE BLOOD CELL COUNT,WBC 13.2 K/uL (3.2-11.0)
[2024-10-02] MEDS: Sodium Chloride 0.9% 500 ML IV ONE (10:27)
[2024-10-02 10:35] LABS: A/G RATIO 0.9 (1.2-2.2); ALANINE AMINOTRANSFERASE,ALT 23 U/L (12-78); ALBUMIN 3.5 g/dL (3.4-5.0); ALKALINE PHOSPHATASE 106 U/L (46-116); ASPARTATE AMNIOTRANSFERASE,AST 14 U/L (15-37); BILIRUBIN TOTAL 0.8 mg/dL (0.2-1.0); BLOOD UREA NITROGEN,BUN 22 mg/dL (7-18); C-REACTIVE PROTEIN 1.92 mg/dL (<0.50); CALCIUM 9.2 mg/dL (8.5-10.1); CARBON DIOXIDE,CO2 23 mmol/L (21-32); CHLORIDE,CL 110 mmol/L (100-108); EST CRCL DRUG DOSING (CG) 33.25 mL/min; ESTIMATED GFR 35 mL/min (>60); GLUCOSE RANDOM 104 mg/dL (74-106); PROTEIN TOTAL,TP 7.5 g/dL (6.4-8.2); SODIUM,NA 144 mmol/L (140-148)
[2024-10-02 11:00] LABS: APPEARANCE,URINE CLEAR (CLEAR); BILIRUBIN,URINE NEGATIVE (NEGATIVE); COLOR,URINE YELLOW (YELLOW); GLUCOSE,URINE NEGATIVE (NEGATIVE); KETONES,URINE NEGATIVE (NEGATIVE); LEUKOCYTE ESTERASE,URINE NEGATIVE (NEGATIVE); NITRITE,URINE NEGATIVE (NEGATIVE); OCCULT BLOOD,URINE NEGATIVE (NEGATIVE); PROTEIN,URINE 100 mg/dL (NEGATIVE); UROBILINOGEN,URINE 0.2 EU/dL (0.2-1.0)
[2024-10-02 11:07] LABS: AMORPHOUS SEDIMENT,URINE RARE; BACTERIA,URINE RARE; EPITHELIAL CELLS,URINE NOT SEEN; MUCUS,URINE RARE; RBC,URINE 0-5 (0-5); WBC,URINE 0-5 (0-5)
[2024-10-02] MEDS: Sodium Chloride 0.9% 60 ML IV ONE (11:28)
[2024-10-02] MEDS: Sodium Chloride 0.9% 10 ML Syringe FLUSH PRN (11:28)
[2024-10-02] MEDS: Iopamidol 612 MG/ML 100 ML Bottle IV PRN (11:28)
[2024-10-02] MEDS ORDERED: metroNIDAZOLE/Normal Saline 500 MG in Premix Bag 1 BAG IV SCH (12:45)
[2024-10-02] MEDS: ceFAZolin 2 GM in Sodium Chloride 0.9% 50 ML IV SCH ×2 (13:06→20:11)
[2024-10-02] MEDS ORDERED: Polyethylene Glycol 3350 Powder 17 GM Packet PO PRN (13:27)
[2024-10-02] MEDS ORDERED: Acetaminophen 325 MG Tab PO PRN (13:27)
[2024-10-02] MEDS ORDERED: Sodium Chloride 0.9% 10 ML Syringe FLUSH PRN (13:27)
[2024-10-02] MEDS ORDERED: Ondansetron 4 MG/2 ML SDV IV PRN (13:27)
[2024-10-02] MEDS: Nicotine 21 MG/24 Hr Patch TRDERM SCH (14:10)
[2024-10-02] MEDS: metroNIDAZOLE/Normal Saline 500 MG in Premix Bag 1 BAG IV SCH (14:19)
[2024-10-02] MEDS: Sodium Chloride 0.9% 1,000 ML IV SCH (17:01)
[2024-10-03 05:55] LABS: HEMATOCRIT 46.2 % (38.4-49.7); HEMOGLOBIN 15.5 g/dL (12.9-16.9); MEAN CORPUSCULAR HEMOGLOBIN 31.1 pg (31.6-35.5); MEAN CORPUSCULAR HGB CONC 33.5 g/dL (31.6-35.5); MEAN CORPUSCULAR VOLUME 92.8 fL (81.4-99.0); RED BLOOD CELL COUNT 4.98 M/uL (4.14-5.76); WHITE BLOOD CELL COUNT,WBC 11.1 K/uL (3.2-11.0)
[2024-10-03 06:07] LABS: CALCIUM 8.9 mg/dL (8.5-10.1); CREATININE 1.7 mg/dL (0.8-1.3); EST CRCL DRUG DOSING (CG) 39.12 mL/min; MAGNESIUM 1.5 mg/dL (1.8-2.4); POTASSIUM,K 3.9 mmol/L (3.6-5.2)
[2024-10-03 06:12] LABS: ANION GAP 13.9 mmol/L (5.0-14.0)
[2024-10-03] MEDS ORDERED: Lidocaine 1% with EPINEPHrine 1:100,000 50 ML MDV ONE (06:50)
[2024-10-03] MEDS ORDERED: Propofol 200 MG/20 ML SDV ONE (06:54)
[2024-10-03] MEDS ORDERED: Dexamethasone 4 MG/ML SDV ONE (06:54)
[2024-10-03] MEDS ORDERED: Rocuronium 50 MG/5 ML Vial ONE (06:54)
[2024-10-03] MEDS ORDERED: Succinylcholine 200 MG/10 ML MDV ONE (06:54)
[2024-10-03] MEDS ORDERED: Glycopyrrolate 0.2 MG/ML 5 ML MDV ONE (06:54)
[2024-10-03] MEDS ORDERED: fentaNYL 250 MCG/5 ML SDV ONE (06:54)
[2024-10-03] MEDS ORDERED: Neostigmine Methylsulfate 10 MG/10 ML MDV ONE (06:54)
[2024-10-03] MEDS ORDERED: Ondansetron 4 MG/2 ML SDV ONE (06:54)
[2024-10-03] MEDS ORDERED: Nicotine Polacrilex 2 MG Gum CHEW PRN (09:00)
[2024-10-03] MEDS: Bupivacaine 0.5%/EPINEPHrine 1:200,000 50 ML MDV ONE (09:35)
[2024-10-03] MEDS: Magnesium Sulfate/Water Premix 2 GM in Premix Bag 1 BAG IV SCH (10:35)
[2024-10-03 12:07] VITALS: BP 159/74; PULSE 82
== END 2024-10-03 12:45 | disposition home or self-care (01) | DRG 395 ==
LOC: JP.ED 08:46 → JP.MS 12:40
PROVIDERS: ADMIT Hospitalist; ATTEND Surgery
PROC: 0D9P80Z Drainage of Rectum with Drainage Device, Via Natural or Artificial Opening Endoscopic (ICD-10-PCS; principal; 2024-10-03 08:55)
DX: K61.1 Rectal abscess (principal); F17.200 Nicotine dependence, unspecified, uncomplicated; N18.9 Chronic kidney disease, unspecified; F17.210 Nicotine dependence, cigarettes, uncomplicated; Z88.8 Allergy status to other drugs, medicaments and biological substances; Z88.0 Allergy status to penicillin; Z87.81 Personal history of (healed) traumatic fracture; Z98.890 Other specified postprocedural states
CPT/HCPCS: 36415; 74177 ×2; 80053; 81001; 83605; 84145; 85025; 86140; 96360; 96361; 99284; J3490 ×2; J7030; Q9967; 00902-QZ; 80048; 83735; 85027; 99222; 99238; J0330; J0690; J1100; J1596; J1836; J2405; J2704; J2710; J3010; J3475

== ENCOUNTER 2024-10-24 10:27 | Emergency (ER) | payer MEDICARE, BC ==
[2024-10-24] MEDS ORDERED: Metoprolol Tartrate 5 MG in Sodium Chloride 0.9% 50 ML IV ONE (11:00)
[2024-10-24 11:07] LABS: EOSINOPHILS ABSOLUTE AUTO 0.31 K/uL (0.00-0.40); EOSINOPHILS PERCENT AUTO 3.1 % (0.0-5.4); HEMATOCRIT 47.8 % (38.4-49.7); HEMOGLOBIN 15.9 g/dL (12.9-16.9); IMMATURE GRAN ABSOLUTE AUTO 0.03 K/uL (0.00-0.23); IMMATURE GRAN PERCENT AUTO 0.3 % (0.0-0.7); LYMPHOCYTES ABSOLUTE AUTO 2.21 K/uL (0.8-3.3); LYMPHOCYTES PERCENT AUTO 21.8 % (11.4-47.7); MEAN CORPUSCULAR HGB CONC 33.3 g/dL (31.6-35.5); MEAN CORPUSCULAR VOLUME 90.2 fL (81.4-99.0); MONOCYTES PERCENT AUTO 5.9 % (3.3-12.6); NEUTROPHILS ABSOLUTE AUTO 6.91 K/uL (1.0-7.6); NEUTROPHILS PERCENT AUTO 67.9 % (40.0-78.1); PLATELET COUNT,PLT 260 K/uL (130-375); WHITE BLOOD CELL COUNT,WBC 10.2 K/uL (3.2-11.0)
[2024-10-24] MEDS: LORazepam 2 MG/ML SDV IVPUSH ONE (11:13)
[2024-10-24] MEDS: Metoprolol Tartrate 5 MG/5 ML SDV IVPUSH ONE ×2 (11:15→13:04)
[2024-10-24 11:31] LABS: A/G RATIO 0.8 (1.2-2.2); ALANINE AMINOTRANSFERASE,ALT 21 U/L (12-78); ALKALINE PHOSPHATASE 98 U/L (46-116); ASPARTATE AMNIOTRANSFERASE,AST 13 U/L (15-37); BILIRUBIN TOTAL 0.5 mg/dL (0.2-1.0); BLOOD UREA NITROGEN,BUN 17 mg/dL (7-18); CALCIUM 9.1 mg/dL (8.5-10.1); CARBON DIOXIDE,CO2 22 mmol/L (21-32); CHLORIDE,CL 109 mmol/L (100-108); CREATININE 1.7 mg/dL (0.8-1.3); EST CRCL DRUG DOSING (CG) 39.12 mL/min; ESTIMATED GFR 43 mL/min (>60); GLUCOSE RANDOM 96 mg/dL (74-106); MAGNESIUM 1.5 mg/dL (1.8-2.4); POTASSIUM,K 3.9 mmol/L (3.6-5.2); PROTEIN TOTAL,TP 6.9 g/dL (6.4-8.2); SODIUM,NA 141 mmol/L (140-148)
[2024-10-24 11:32] LABS: ANION GAP 13.9 mmol/L (5.0-14.0)
[2024-10-24 11:33] LABS: TROPONIN I HIGH SENSITIVITY 92.9 pg/mL (<=60.3)
[2024-10-24 13:05] VITALS: BP 115/78; PULSE 144
[2024-10-24 13:16] LABS: APPEARANCE,URINE CLEAR (CLEAR); BILIRUBIN,URINE NEGATIVE (NEGATIVE); COLOR,URINE YELLOW (YELLOW); GLUCOSE,URINE NEGATIVE (NEGATIVE); KETONES,URINE NEGATIVE (NEGATIVE); LEUKOCYTE ESTERASE,URINE NEGATIVE (NEGATIVE); NITRITE,URINE NEGATIVE (NEGATIVE); OCCULT BLOOD,URINE SMALL (NEGATIVE); PH,URINE 5.5 (5.0-8.0); PROTEIN,URINE 100 mg/dL (NEGATIVE); UROBILINOGEN,URINE 0.2 EU/dL (0.2-1.0)
[2024-10-24 13:24] LABS: AMORPHOUS SEDIMENT,URINE NOT SEEN; BACTERIA,URINE NOT SEEN; EPITHELIAL CELLS,URINE RARE; MUCUS,URINE NOT SEEN; WBC,URINE 0-5 (0-5)
[2024-10-24 13:25] LABS: AMPHETAMINES SCREEN, URINE NEGATIVE (NEGATIVE); BARBITURATE SCREEN,URINE NEGATIVE (NEGATIVE); BENZODIAZEPINES SCREEN,URINE NEGATIVE (NEGATIVE); METHADONE SCREEN, URINE NEGATIVE (NEGATIVE); METHAMPHETAMINES SCREEN, URINE NEGATIVE (NEGATIVE); OXYCODONE SCREEN,URINE NEGATIVE (NEGATIVE); PROPOXYPHENE SCREEN,URINE NEGATIVE (NEGATIVE); THC SCREEN,URINE 50 NG/ML NEGATIVE (NEGATIVE)
== END 2024-10-24 13:56 | disposition home or self-care (01) ==
LOC: JP.ED 10:27
DX: I12.9 Hypertensive chronic kidney disease with stage 1 through stage 4 chronic kidney disease, or unspecified chronic kidney disease (principal); N18.9 Chronic kidney disease, unspecified; F17.210 Nicotine dependence, cigarettes, uncomplicated; Z88.0 Allergy status to penicillin; Z88.8 Allergy status to other drugs, medicaments and biological substances
CPT/HCPCS: 36415; 80053; 80305; 80307; 81001; 83735; 84443; 84484; 85025; 93010; 96374; 96375; 96376; 99285; J2060; J3490

== ENCOUNTER 2024-12-11 08:39 | Emergency (ER) | payer MEDICARE, BC ==
[2024-12-11 09:04] VITALS: BP 120/93; PULSE 150
[2024-12-11 09:15] LABS: BASOPHILS ABSOLUTE AUTO 0.07 K/uL (0.00-0.10); BASOPHILS PERCENT AUTO 0.9 % (0.1-1.3); EOSINOPHILS ABSOLUTE AUTO 0.17 K/uL (0.00-0.40); EOSINOPHILS PERCENT AUTO 2.1 % (0.0-5.4); HEMATOCRIT 48.6 % (38.4-49.7); HEMOGLOBIN 16.6 g/dL (12.9-16.9); IMMATURE GRAN PERCENT AUTO 0.2 % (0.0-0.7); LYMPHOCYTES PERCENT AUTO 25.7 % (11.4-47.7); MEAN CORPUSCULAR HEMOGLOBIN 29.7 pg (31.6-35.5); MEAN CORPUSCULAR HGB CONC 34.2 g/dL (31.6-35.5); MEAN CORPUSCULAR VOLUME 86.9 fL (81.4-99.0); MONOCYTES ABSOLUTE AUTO 0.63 K/uL (0.20-0.90); MONOCYTES PERCENT AUTO 7.7 % (3.3-12.6); NEUTROPHILS ABSOLUTE AUTO 5.18 K/uL (1.0-7.6); NEUTROPHILS PERCENT AUTO 63.4 % (40.0-78.1); PLATELET COUNT,PLT 198 K/uL (130-375); RED BLOOD CELL COUNT 5.59 M/uL (4.14-5.76); WHITE BLOOD CELL COUNT,WBC 8.2 K/uL (3.2-11.0)
[2024-12-11 09:29] LABS: IMMATURE GRAN ABSOLUTE AUTO 0.02 K/uL (0.00-0.23)
[2024-12-11] MEDS: Furosemide 40 MG/4 ML VIAL IVPUSH ONE (09:29)
[2024-12-11] MEDS: Sodium Chloride 0.9% 1,000 ML IV ONE (09:29)
[2024-12-11] MEDS: Metoprolol Tartrate 5 MG/5 ML SDV IVPUSH ONE (09:29)
[2024-12-11 09:32] LABS: INR 1.2; PROTHROMBIN TIME 12.1 sec (9.2-10.6)
[2024-12-11 09:44] LABS: ALANINE AMINOTRANSFERASE,ALT 44 U/L (12-78); ALBUMIN 3.4 g/dL (3.4-5.0); ALKALINE PHOSPHATASE 109 U/L (46-116); ASPARTATE AMNIOTRANSFERASE,AST 33 U/L (15-37); BLOOD UREA NITROGEN,BUN 24 mg/dL (7-18); CALCIUM 8.3 mg/dL (8.5-10.1); CARBON DIOXIDE,CO2 19 mmol/L (21-32); CHLORIDE,CL 106 mmol/L (100-108); CREATININE 1.7 mg/dL (0.8-1.3); EST CRCL DRUG DOSING (CG) 40.43 mL/min; ESTIMATED GFR 43 mL/min (>60); GLUCOSE RANDOM 91 mg/dL (74-106); POTASSIUM,K 4.3 mmol/L (3.6-5.2); PRO B-TYPE NATRIUR PEPT,BNPPRO 13010 pg/mL (5-125); PROTEIN TOTAL,TP 6.9 g/dL (6.4-8.2); SODIUM,NA 140 mmol/L (140-148)
[2024-12-11 09:45] LABS: ANION GAP 19.3 mmol/L (5.0-14.0); TROPONIN I HIGH SENSITIVITY 108.5 pg/mL (<=60.3)
[2024-12-11] MEDS: Ondansetron 4 MG/2 ML SDV IVPUSH ONE (09:47)
[2024-12-11 10:19] LABS: APPEARANCE,URINE CLEAR (CLEAR); BILIRUBIN,URINE NEGATIVE (NEGATIVE); COLOR,URINE YELLOW (YELLOW); GLUCOSE,URINE NEGATIVE (NEGATIVE); KETONES,URINE NEGATIVE (NEGATIVE); LEUKOCYTE ESTERASE,URINE NEGATIVE (NEGATIVE); NITRITE,URINE NEGATIVE (NEGATIVE); OCCULT BLOOD,URINE NEGATIVE (NEGATIVE); PH,URINE 5.5 (5.0-8.0); PROTEIN,URINE 100 mg/dL (NEGATIVE); UROBILINOGEN,URINE 0.2 EU/dL (0.2-1.0)
[2024-12-11] MEDS: Sodium Chloride 0.9% 100 ML IV ONE (10:22)
[2024-12-11] MEDS: Sodium Chloride 0.9% 10 ML Syringe FLUSH PRN (10:23)
[2024-12-11] MEDS: Iopamidol 755 Mg/ML 100 ML Bottle IV SCH (10:23)
[2024-12-11 10:26] LABS: AMORPHOUS SEDIMENT,URINE NOT SEEN; BACTERIA,URINE RARE; EPITHELIAL CELLS,URINE RARE; MUCUS,URINE NOT SEEN; RBC,URINE 0-5 (0-5); WBC,URINE 0-5 (0-5)
[2024-12-11 11:40] LABS: INFLUENZA A NAA NEGATIVE (NEGATIVE); INFLUENZA B NAA NEGATIVE (NEGATIVE); RESPIRATORY SYNCYTIAL VIR NAA NEGATIVE (NEGATIVE)
[2024-12-11 11:42] LABS: CORONAVIRUS COVID-19 NAA POSITIVE (NEGATIVE)
[2024-12-11] MEDS ORDERED: Metoprolol Tartrate 5 MG in Sodium Chloride 0.9% 50 ML IV ONE (12:14)
[2024-12-11] MEDS ORDERED: Furosemide 40 MG/4 ML VIAL IVPUSH ONE (12:15)
[2024-12-11] MEDS ORDERED: Metoprolol Tartrate 5 MG/5 ML SDV IV ONE (12:30)
== END 2024-12-11 12:41 | disposition left against medical advice (07) ==
LOC: JP.ED 08:39
DX: I50.9 Heart failure, unspecified (principal); R00.0 Tachycardia, unspecified; N18.9 Chronic kidney disease, unspecified; Z79.899 Other long term (current) drug therapy; Z88.0 Allergy status to penicillin; Z88.8 Allergy status to other drugs, medicaments and biological substances
CPT/HCPCS: 0241U; 36415; 71045; 71275; 80053; 81001; 83605; 83880; 84484; 85025; 85379; 85610; 93005; 96361; 96374; 96375; 99285; J1940; J3490; J7030; Q9967

== ENCOUNTER 2025-02-09 14:13 | Emergency (ER) | payer MEDICARE, BC ==
[2025-02-09] MEDS ORDERED: Aspirin 81 MG Tab.Chew PO ONE (14:15)
[2025-02-09 14:35] LABS: BASOPHILS ABSOLUTE AUTO 0.08 K/uL (0.00-0.10); BASOPHILS PERCENT AUTO 0.8 % (0.1-1.3); EOSINOPHILS ABSOLUTE AUTO 0.24 K/uL (0.00-0.40); EOSINOPHILS PERCENT AUTO 2.4 % (0.0-5.4); HEMATOCRIT 49.1 % (38.4-49.7); HEMOGLOBIN 16.2 g/dL (12.9-16.9); IMMATURE GRAN ABSOLUTE AUTO 0.03 K/uL (0.00-0.23); IMMATURE GRAN PERCENT AUTO 0.3 % (0.0-0.7); LYMPHOCYTES PERCENT AUTO 26.4 % (11.4-47.7); MONOCYTES ABSOLUTE AUTO 0.69 K/uL (0.20-0.90); NEUTROPHILS ABSOLUTE AUTO 6.22 K/uL (1.0-7.6); NEUTROPHILS PERCENT AUTO 63.1 % (40.0-78.1); PLATELET COUNT,PLT 214 K/uL (130-375); RED BLOOD CELL COUNT 5.58 M/uL (4.14-5.76); WHITE BLOOD CELL COUNT,WBC 9.9 K/uL (3.2-11.0)
[2025-02-09] MEDS: Sodium Chloride 0.9% 1,000 ML IV ONE (14:53)
[2025-02-09] MEDS: Sodium Chloride 0.9% 10 ML Syringe FLUSH PRN (14:53)
[2025-02-09 15:00] LABS: CREATININE 2.1 mg/dL (0.8-1.3); EST CRCL DRUG DOSING (CG) 32.73 mL/min
[2025-02-09 15:02] LABS: TROPONIN I HIGH SENSITIVITY 85.8 pg/mL (<=60.3)
[2025-02-09] MEDS: Magnesium Sulf/Wat 2 GM/50 mL 2 GM in Premix Bag 1 BAG IV ONE (16:40)
[2025-02-09 18:27] VITALS: BP 133/94; PULSE 116
== END 2025-02-09 19:16 | disposition home or self-care (01) ==
LOC: JP.ED 14:13
DX: I48.3 Typical atrial flutter (principal); E83.42 Hypomagnesemia; Z88.0 Allergy status to penicillin; N18.9 Chronic kidney disease, unspecified; Z79.01 Long term (current) use of anticoagulants; Z88.8 Allergy status to other drugs, medicaments and biological substances; Z79.899 Other long term (current) drug therapy
CPT/HCPCS: 36415; 80048; 83735; 84484; 85025; 93005; 93010; 96361; 96365; 96366; 99284; 99285; J3475; J7030